=== PATIENT | female | born 1990 | race African-American/Black ===

== ENCOUNTER 2017-04-18 11:19 | Emergency (ER) | payer BC ==
[2017-04-18] MEDS ORDERED: Ibuprofen 800 MG Tab PO ONE (11:34)
--- NOTE | 2017-04-18 11:35 | EDM.PDOC ---
ED HPI GENERAL MEDICAL PROBLEM - General Chief Complaint: Lower Extremity Injury/Pain Stated Complaint: RT TOE BROKEN Time Seen by Provider: 04/18/17 11:23 Source of Information: Reports: Patient History Limitations: Reports: No Limitations - History of Present Illness INITIAL COMMENTS - FREE TEXT/NARRATIVE: History of present illness: []Patient got out of bed at 3 in the morning and hit her foot on a dresser gradient between the second and great toe. She has pain in her foot with swelling she has difficulty moving it secondary to pain. She denies any other injuries. Review of systems: As per history of present illness and below otherwise all systems reviewed and negative. Past medical history: As per history of present illness and as reviewed below otherwise noncontributory. Surgical history: As per history of present illness and as reviewed below otherwise noncontributory. Social history: No reported history of drug or alcohol abuse. Family history: As per history of present illness and as reviewed below otherwise noncontributory. Physical exam: General: Well developed, well nourished in NAD HEENT: Atraumatic, normocephalic, pupils reactive, negative for conjunctival pallor or scleral icterus, mucous membranes moist, throat clear, neck supple, nontender, trachea midline. Lungs: Clear to auscultation, breath sounds equal bilaterally, chest nontender. Heart: S1S2, regular, negative for clicks, rubs, or JVD. Abdomen: Soft, nondistended, nontender. Negative for masses or hepatosplenomegaly. Negative for costovertebral tenderness. Pelvis: Stable nontender. Genitourinary: Deferred. Rectal: Deferred. Extremities: Right foot with ecchymosis dorsal foot proximal segment third toe she has tenderness of the second toe is no open wounds. He is able to move her toes and has sensation., negative for cords or calf pain. Neurovascular unremarkable. Neuro: Awake, alert, oriented. Cranial nerves II through XII unremarkable. Cerebellum unremarkable. Motor and sensory unremarkable throughout. Exam nonfocal. Diagnostics: []X-ray showing proximal phalanx of the second toe with a fracture Therapeutics: [] Impression: []Fracture second toe Plan: []Hard shoe, tramadol for pain, ice and elevate follow-up with podiatry Definitive disposition and diagnosis as appropriate pending reevaluation and review of above. Right Feet Pain Score (Numeric/FACES): 7 - Related Data Allergies Allergy/AdvReac Type Severity Reaction Status Date / Time No Known Allergies Allergy Verified 04/18/17 11:24 Home Meds: Home Meds traMADol [Ultram] 50 mg PO Q8H PRN #16 tablet 04/18/17 [Rx] Past Medical History - Past Health History Medical/Surgical History: Denies Medical/Surgical History HEENT History: Reports: None Other HEENT History: Pt. states "had surgery on my scalp when I was 5 days old-- it wasn't connected or something; I don't really know what it was for". Cardiovascular History: Reports: None Respiratory History: Reports: None Other Respiratory History: Pt. states "have a cold right now--cough up a little mucus--it's clear; no fever" Gastrointestinal History: Reports: None Genitourinary History: Reports: None PRECISION INSPECTOR History: Reports: Musculoskeletal History: Reports: None Neurological History: Reports: None Psychiatric History: Reports: None Endocrine/Metabolic History: Reports: None Hematologic History: Reports: None Immunologic History: Reports: None Oncologic (Cancer) History: Reports: None Dermatologic History: Reports: Other (See Below) Other Dermatologic History: Pt states, "When I was 5 days old I had surgery on my head." Pt unable to verify details at this time. - Infectious Disease History Infectious Disease History: Reports: Chicken Pox - Past Surgical History Head Surgeries/Procedures: Reports: None HEENT Surgical History: Reports: None Cardiovascular Surgical History: Reports: None Respiratory Surgical History: Reports: None GI Surgical History: Reports: None Female Surgical History: Reports: None Endocrine Surgical History: Reports: None Neurological Surgical History: Reports: None Musculoskeletal Surgical History: Reports: None Oncologic Surgical History: Reports: None Dermatological Surgical History: Reports: None Social & Family History - Family History Family Medical History: Noncontributory Immunologic: Reports: None - Tobacco Use Smoking Status *Q: Current Every Day Smoker Years of Tobacco use: 6 Packs/Tins Daily: 0.5 Used Tobacco, but Quit: Yes Month Tobacco Last Used: 08/2014 Second Hand Smoke Exposure: No - Caffeine Use Caffeine Use: Reports: None - Alcohol Use Days Per Week of Alcohol Use: 0 - Recreational Drug Use Recreational Drug Use: Yes Drug Use in Last 12 Months: Yes Recreational Drug Type: Reports: Marijuana/Hashish Recreational Drug Use Frequency: Daily Recreational Drug Last Use: November 2014 Review of Systems - Review of Systems Review Of Systems: See Below (See history of present illness) ED EXAM, GENERAL - Physical Exam Exam: See Below (See history of present illness) Course - Vital Signs Last Recorded V/S: Last Vital Signs Temp 36.7 C 04/18/17 11:24 Pulse 75 04/18/17 11:24 Resp 18 04/18/17 11:24 BP 110/58 L 04/18/17 11:24 Pulse Ox 98 04/18/17 11:24 - Orders/Labs/Meds Orders: Active Orders 24 hr Category Date Time Status Splinting [RC] ASDIRECTED Care 04/18/17 12:13 Active Foot 2V Rt [CR] Stat Exams 04/18/17 11:26 Taken Meds: Medications Discontinued Medications Generic Name Dose Route Start Last Admin Trade Name Freq PRN Reason Stop Dose Admin Ibuprofen 800 mg 04/18/17 11:34 04/18/17 12:04 Motrin PO 04/18/17 11:35 800 mg ONETIME ONE Administration Departure - Departure Time of Disposition: 12:15 Disposition: Home, Self-Care 01 Condition: Good Clinical Impression: Fracture of second toe, left, closed Qualifiers: Encounter type: initial encounter Qualified Code(s): S92.502A - Displaced unspecified fracture of left lesser toe(s), initial encounter for closed fracture - Discharge Information Prescriptions: traMADol [Ultram] 50 mg PO Q8H PRN #16 tablet PRN Reason: Pain Referrals: PCP,None [Primary Care Provider] - Forms: ED Department Discharge Additional Instructions: The following information is given to patients seen in the emergency department who are being discharged to home. This information is to outline your options for follow-up care. We provide all patients seen in our emergency department with a follow-up referral. The need for follow-up, as well as the timing and circumstances, are variable depending upon the specifics of your emergency department visit. If you don't have a primary care physician on staff, we will provide you with a referral. We always advise you to contact your personal physician following an emergency department visit to inform them of the circumstance of the visit and for follow-up with them and/or the need for any referrals to a consulting specialist. The emergency department will also refer you to a specialist when appropriate. This referral assures that you have the opportunity for follow-up care with a specialist. All of these measure are taken in an effort to provide you with optimal care, which includes your follow-up. Under all circumstances we always encourage you to contact your private physician who remains a resource for coordinating your care. When calling for follow-up care, please make the office aware that this follow-up is from your recent emergency room visit. If for any reason you are refused follow-up, please contact the [facility] Emergency Department at and asked to speak to the emergency department charge nurse. Ice, elevate, Motrin and/or tramadol for pain. Follow-up with podiatry My [facility] Dr Lehman, DPM Podiatry [address] [place] [id number] - My Orders Last 24 Hours: My Active Orders 04/18/17 11:26 Foot 2V Rt [CR] Stat 04/18/17 12:13 Splinting [RC] ASDIRECTED - Assessment/Plan Last 24 Hours: My Active Orders 04/18/17 11:26 Foot 2V Rt [CR] Stat 04/18/17 12:13 Splinting [RC] ASDIRECTED
--- NOTE | 2017-04-18 12:21 | CR ---
EXAMINATION: Right foot HISTORY: Pain COMPARISON: None TECHNIQUE: 2 views FINDINGS/IMPRESSION: There is an oblique minimally displaced fracture involving the proximal second p halanx. Remaining osseous structures and joint spaces appear intact. Bone mineralization is normal.
[2017-04-18 12:22] VITALS: BP 104/57
== END 2017-04-18 12:30 | disposition home or self-care (01) ==
LOC: MW.ED 11:19
DX: S92.511A Displaced fracture of proximal phalanx of right lesser toe(s), initial encounter for closed fracture (principal); F17.210 Nicotine dependence, cigarettes, uncomplicated; W22.8XXA Striking against or struck by other objects, initial encounter
CPT/HCPCS: 73620; 99283; A9270